=== PATIENT | male | born 1955 | race Caucasian/White ===

== ENCOUNTER 2017-01-12 10:12 | Emergency (ER) | payer OTHER, MEDICAID ==
[~2017-01-12] VITALS: Ht 180.3 cm; Wt 88.5 kg
[~2017-01-12 10:12] MED LIST: HYDR-1421; NAPR1SUS2; NOR10T; OME20GT; OMEPRAZOLE; OXYCONTIN; [UNRECOGNIZED DRUG - OTHER]
[2017-01-12 11:37] VITALS: BP 155/92
== END 2017-01-12 11:44 | disposition home or self-care (01) ==
LOC: ER 10:12
DX: S60.221A Contusion of right hand, initial encounter (principal); K21.9 Gastro-esophageal reflux disease without esophagitis; E78.5 Hyperlipidemia, unspecified; F17.210 Nicotine dependence, cigarettes, uncomplicated; Z90.49 Acquired absence of other specified parts of digestive tract; Z87.442 Personal history of urinary calculi; Z88.6 Allergy status to analgesic agent; Z88.0 Allergy status to penicillin; Z88.8 Allergy status to other drugs, medicaments and biological substances; W23.0XXA Caught, crushed, jammed, or pinched between moving objects, initial encounter; Y93.89 Activity, other specified; Y99.8 Other external cause status; Y92.89 Other specified places as the place of occurrence of the external cause
CPT/HCPCS: 73130

== ENCOUNTER 2018-02-01 11:24 | Emergency (ER) | payer MEDICARE, MEDICAID ==
[~2018-02-01] VITALS: Ht 180.3 cm; Wt 95.3 kg
[~2018-02-01 11:24] MED LIST changes: +NAPR125S6; -NAPR1SUS2
[2018-02-01 11:52] VITALS: BP 134/90
[2018-02-01 12:18] LABS: Basophils # (auto) 0 uL; Basophils % (auto) 0.5 % (0.0-2.0); Eosinophils # (auto) 0 uL; Eosinophils % (auto) 0.3 % (0.0-7.0); Hematocrit 43.4 % (41.0-53.0); Hemoglobin 14.5 g/dL (13.5-17.5); Lymphocytes # (auto) 1.7 uL; Lymphocytes % (auto) 17.5 % (10.0-50.0); Mean Corpuscular Hemoglobin 30.1 pg (28.0-32.0); Mean Corpuscular Hgb Conc. 33.3 g/dL (32.0-36.0); Mean Corpuscular Volume 90.3 fL (80.0-100.0); Monocytes # (auto) 0.6 uL; Monocytes % (auto) 6.4 % (0.0-12.0); Neutrophils # (auto) 7.6 uL; Neutrophils % (auto) 75.3 % (37.0-80.0); Platelet Count (auto) 314 10^3/uL (140-450); Red Blood Cells 4.81 10^6/uL (4.5-5.90)
[2018-02-01 12:36] LABS: Albumin 3.3 g/dL (3.4-5.0); BUN/Creatinine Ratio 10.6; Calcium 9.1 mg/dL (8.5-10.1); Magnesium 2.2 mg/dL (1.6-2.6); Potassium 3.4 mmol/L (3.5-5.1)
[2018-02-01 12:40] LABS: Bilirubin, Total 0.4 mg/dL (0.2-1.0); INR 0.98 (0.9-1.15); Partial Thromboplastin Time 28.2 sec (22.64-33.71); Prothrombin Time 10.7 sec (9.37-12.3); Total Protein 7.7 g/dL (6.4-8.2)
== END 2018-02-01 20:00 | disposition left against medical advice (07) ==
LOC: ER 11:26
DX: R07.9 Chest pain, unspecified (principal); Z53.21 Procedure and treatment not carried out due to patient leaving prior to being seen by health care provider
CPT/HCPCS: 36415; 71046; 80053; 83735; 85025; 85610; 85730; 93005